=== PATIENT | female | born 1930 | race Caucasian/White ===

== ENCOUNTER 2017-12-26 05:06 | Emergency (ER) | payer BC, MEDICARE ==
[2017-12-26] MEDS ORDERED: DIPH,PERTUS(ACELL)TETVAC-LF 0.5 ML VIAL IM ONE (05:32)
[2017-12-26] MEDS ORDERED: CEPHALEXIN 500 MG CAP PO STA (05:32)
--- NOTE | 2017-12-26 05:35 | ED ---
Fall HPI - General Chief Complaint: Fall Stated Complaint: fall Time Seen by Provider: 12/26/17 05:23 Source: patient Mode of arrival: ambulatory - History of Present Illness Initial Comments: This patient is an 87-year-old woman who states that she had rolled then fall out of bed. She struck her nose on the floor when she fell. She is having bleeding from the nose. She denies other injuries. Complaint: fall -: minutes(s) Fall From: out of bed When Fall Occurred: [address] Fall Occurred: home Loss of Consciousness: none Prolonged Down Time?: no Location: face Severity: mild Quality: dull Associated Symptoms: denies - Related Data Previous Rx's Medication Instructions Recorded Cephalexin [Keflex] 500 mg PO Q6HR #20 cap 12/26/17 Allergies Allergy/AdvReac Type Severity Reaction Status Date / Time Sulfa (Sulfonamide Allergy Unknown Verified 12/26/17 05:14 Antibiotics) Childhood Review of Systems ROS Statement: Those systems with pertinent positive or pertinent negative responses have been documented in the HPI. ROS Other: All systems not noted in ROS Statement are negative. Constitutional: Denies: fever, weakness Eyes: Denies: eye pain, vision change ENT: Reports: epistaxis Respiratory: Denies: cough, dyspnea Cardiovascular: Denies: chest pain, palpitations, syncope Gastrointestinal: Denies: abdominal pain, nausea, vomiting Musculoskeletal: Denies: back pain, arthralgia Skin: Denies: rash Neurological: Denies: headache, weakness, numbness Hematological/Lymphatic: Denies: easy bleeding Past Medical History History of Any Multi-Drug Resistant Organisms: None Reported Past Surgical History: Appendectomy, Hysterectomy, Orthopedic Surgery, Tonsillectomy Past Psychological History: No Psychological Hx Reported Smoking Status: Former smoker Past Alcohol Use History: Occasional Past Drug Use History: None Reported General Exam Limitations: no limitations General appearance: alert, in no apparent distress Eye exam: Present: normal appearance. Absent: scleral icterus, conjunctival injection ENT exam: Present: normal oropharynx, other (Patient does have swelling to the nose. Dried blood in the naris. No septal hematoma.) Neck exam: Present: full ROM. Absent: tenderness Respiratory exam: Present: normal lung sounds bilaterally. Absent: respiratory distress, wheezes, rales, rhonchi, stridor Cardiovascular Exam: Present: regular rate, normal rhythm, normal heart sounds. Absent: systolic murmur, diastolic murmur, rubs, gallop GI/Abdominal exam: Present: soft. Absent: tenderness Skin exam: Present: warm, dry, intact, normal color. Absent: rash Course Vital Signs 12/26/17 05:09 Temperature 98.2 F Pulse Rate 100 Respiratory 20 Rate Blood Pressure 201/96 O2 Sat by Pulse 97 Oximetry Disposition Clinical Impression: Fall, Nasal bone fracture, Hypertension Disposition: HOME SELF-CARE Condition: Good Instructions: Nasal Fracture (ED), Fall Prevention for Older Adults (ED), Hypertension (ED) Prescriptions: Cephalexin [Keflex] 500 mg PO Q6HR #20 cap Is patient prescribed a controlled substance at d/c from ED?: No Referrals: Oswaldo Arboleda MD [Primary Care Provider] - 1-2 days Wiliam Tavarez MD [STAFF PHYSICIAN] - 1-2 days
--- NOTE | 2017-12-26 06:00 | XR ---
EXAMINATION TYPE: XR nasal bone DATE OF EXAM: 12/26/2017 COMPARISON: NONE HISTORY: Injury and pain TECHNIQUE: 3 views FINDINGS: Nasal bone shows a possible hairline fracture of the anterior tip. The maxillary spine is i ntact. The remainder of exam is unremarkable. IMPRESSION: There is probably a hairline fracture of the anterior tip of the nasal bone
[2017-12-26] MEDS ORDERED: CEPHALEXIN 500MG STARTER PACK 4 CAP BTL PO STA (06:57)
[2017-12-26] MEDS ORDERED: ACET/COD 300 MG/30 MG STARTER PACK 6 TAB BTL PO STA (06:57)
[2017-12-26] MEDS ORDERED: cloNIDine HCL 0.2 MG TAB PO STA (07:00)
[2017-12-26 08:05] VITALS: BP 160/78; PULSE 88; RESP 18; TEMP 97.8
== END 2017-12-26 08:09 | disposition home or self-care (01) ==
LOC: EC 05:06
DX: S02.2XXA Fracture of nasal bones, initial encounter for closed fracture (principal); I10 Essential (primary) hypertension; Z23 Encounter for immunization; Z87.891 Personal history of nicotine dependence; Z88.2 Allergy status to sulfonamides; W06.XXXA Fall from bed, initial encounter; Y92.009 Unspecified place in unspecified non-institutional (private) residence as the place of occurrence of the external cause
CPT/HCPCS: 70160; 90471; 90715; 99283

== ENCOUNTER → 2020-07-10 | Outpatient (CLI) | payer MEDICARE, BC ==
--- NOTE | 2020-07-10 09:23 | P.CONS ---
History of Present Illness - Reason for Consult Consult date: 07/10/20 - Chief Complaint Lower back and bilateral leg pain - History of Present Illness This is an 89-year-old lady with history of chronic lower back pain with radiation to the lower extremities down to the mid calves with no paresthesia in the lower extremities. The pain wakes the patient up at night and she admits to losing a few pounds overweight due to loss of appetite. The pain increases with activities and improved by resting. She had an MRI on the lumbar spine which showed severe levoscoliosis and right L4 nerve root compression due to disc herniation and osteophyte complex there is also compression of the left L5 nerve root however her pain on the right side is more intense than the left side as she states. The patient denies any bowel or bladder dysfunction. She uses a brace for her back. She is not a surgical candidate. The patient is a poor historian due to hearing difficulty. Past Medical History Past Medical History: Asthma, Cancer, GERD/Reflux, Hearing Disorder / Deafness, Hyperlipidemia, Hypertension Additional Past Medical History / Comment(s): cancer lower eye lid removed, lower back pain radiating to legs and knees., uses cane., states Dr Howard ordered her a back brace., hearing aids. History of Any Multi-Drug Resistant Organisms: None Reported Past Surgical History: Appendectomy, Hysterectomy, Orthopedic Surgery, Tonsillectomy Additional Past Surgical History / Comment(s): partial knee (R) Past Anesthesia/Blood Transfusion Reactions: No Reported Reaction Past Psychological History: Depression Additional Psychological History / Comment(s): states some depression with covid. Smoking Status: Former smoker Past Alcohol Use History: Daily Additional Past Alcohol Use History / Comment(s): quit smoking 63 years ago. 1 glass with dinner, 2 glasses on the weekend Past Drug Use History: None Reported - Past Family History Mother Family Medical History: No Reported History Medications and Allergies Home Medications Medication Instructions Recorded Confirmed Type Acetaminophen [Tylenol Extra 1,000 mg PO DIRECTED PRN 07/04/20 07/04/20 History Strength] Atorvastatin [Lipitor] 20 mg PO HS 07/04/20 07/04/20 History Benazepril/Hydrochlorothiazide 1 each PO DAILY 07/04/20 07/04/20 History [Benazepril-Hctz 20-25 mg Tab] Fish Oil/Dha/Epa [Fish Oil 1,200 1 each PO DAILY 07/04/20 07/04/20 History mg Fish Oil] Ibuprofen [Motrin Ib] 200 mg PO DIRECTED PRN 07/04/20 07/04/20 History Metoprolol Succinate (ER) [Toprol 25 mg PO DAILY 07/04/20 07/04/20 History Xl] Multivitamin/Iron/Folic Acid 1 each PO DAILY 07/04/20 07/04/20 History [Centrum Adults Tablet] Omeprazole 20 mg PO DAILY 07/04/20 07/04/20 History Potassium Chloride 10 meq PO DAILY 07/04/20 07/04/20 History Ubidecarenone [Co Q-10] 100 mg PO DAILY 07/04/20 07/04/20 History Allergies Allergy/AdvReac Type Severity Reaction Status Date / Time Sulfa (Sulfonamide Allergy Unknown Verified 07/04/20 14:16 Antibiotics) Childhood levofloxacin [From Levaquin] AdvReac Unknown Swelling Verified 07/04/20 14:18 of ankles Physical Exam - Constitutional General appearance: average body habitus - EENT Eyes: PERRLA ENT: hard of hearing - Neurologic Neuro exam of the lower extremities showed mild decrease in the muscle strength to 4 out of 5 for the major muscle groups. Decreased but symmetrical knee reflexes and absent ankle reflex bilaterally. Mild tenderness in the lumbar paravertebral musculature bilaterally. Straight leg raising test is negative bilaterally. - Psychiatric Psychiatric: A&O x's 3, appropriate affect, intact judgment & insight Assessment and Plan Plan: This is an 89-year-old lady with history of chronic lower back pain with radiation to the lower extremities without paresthesia. The patient has severe scoliosis by the MRI and compression of the right L4 nerve root on the left L5 nerve root. She would benefit from getting lumbar epidural steroid injection at the L4 5 level in the right paramedian approach. The procedure was explained to the patient in the presence of her and she was agreeable to it. I thank Dr. Salinas for the referral
[2020-07-10 09:28] VITALS: BP 196/75; PULSE 91; RESP 18; TEMP 97.6
== END ==
LOC: PNWHC3 08:51
PROVIDERS: ATTEND Anesthesiology
DX: G89.29 Other chronic pain (principal); M41.9 Scoliosis, unspecified; J45.909 Unspecified asthma, uncomplicated; E78.5 Hyperlipidemia, unspecified; K21.9 Gastro-esophageal reflux disease without esophagitis; I10 Essential (primary) hypertension; H91.90 Unspecified hearing loss, unspecified ear; F32.9 Major depressive disorder, single episode, unspecified; Z87.891 Personal history of nicotine dependence; Z79.899 Other long term (current) drug therapy
CPT/HCPCS: 99211

== ENCOUNTER 2020-08-08 09:23 | Day surgery (SDC) | payer MEDICARE, BC ==
[2020-08-04 13:04] VITALS: BMI 21.8
[~2020-08-08 09:23] MED LIST: LACTATED RINGERS 1,000 ML IV SCH
[2020-08-08 09:42] VITALS: RESP 16; TEMP 97.9
[2020-08-08] MEDS ORDERED: methylPREDNISolone ACETATE 40 MG/ML 1 ML VIAL ONE (10:04)
[2020-08-08] MEDS ORDERED: IOPAMIDOL M200 10 ML VIAL ONE (10:04)
[2020-08-08 10:35] VITALS: BP 166/87; PULSE 67
--- NOTE | 2020-08-08 10:38 | P.PCN ---
Date of Procedure: 08/08/20 Description of Procedure: PREOPERATIVE DIAGNOSIS: lumbar radiculopathy POSTOPERATIVE DIAGNOSIS: Lumbar radiculopathy PROCEDURE 1. Lumbar epidural steroid injection under fluoroscopic guidance at the L4-L5 level. 2. Lumbar epidurogram. Imaging: Fluoroscopy was used, images where saved to the medical record ANESTHESIA: Local with 1% lidocaine 5 ml EBL: Minimal PROCEDURE INDICATION: The patient with low back pain and radiculitis symptoms unresponsive to conservative treatment. Fluoroscopy was used to optimize visualization of the needle placement and to maximize safety. PROCEDURE DESCRIPTION / TECHNIQUE: The patient was seen and identified in the preoperative area. Risks, benefits, complications including but not limited to infections ,bleeding ,allergic reaction to the medications, nerve damage and incomplete pain relief , as well as alternatives to the procedure were discussed with the patient. The patient agreed to proceed with the procedure and signed the consent. IV was started, and vital signs were stable. Patient was taken to the OR and time out was completed. The patient was placed in the prone position on procedure table and a pillow was placed under the abdomen to reduce lumbar lordosis. The lumbosacral area was prepped and draped in the usual sterile fashion. Vitals were closely monitored during the procedure. Using anterior-posterior fluoroscopy, the L4-L5 interlaminar space was identified and the skin over this site was marked and then infiltrated with 1% lidocaine subcutaneously. Subsequently, a 20-gauge Tuohy epidural needle was inserted and advanced toward the epidural space using the Loss of resistance technique and guided by AP and lateral fluoroscopy. The correct needle position in the epidural space was verified with the injection of 1 mL of Omnipaque 180 contrast to observe an acceptable epidurogram, after negative aspiration for blood and CSF and in the absence of paresthesias. Again after negative aspiration, a 3 ml mixture containing 40mg of depomedrol and 2 ml of preservative free Normal Saline was injected and a washout of epidurogram was seen. Needle was withdrawn intact, skin was cleansed, and bandages were applied. COMPLICATIONS: None DISPOSITION / PLANS: The patient was placed in a supine position and transferred to the recovery area in a stable condition for observation. There was no evidence of lower extremity motor or sensory deficit after the procedure. Patient was discharged from the recovery room after meeting discharge criteria. Home discharge instructions were given to the patient by the staff. The patient was reexamined prior to discharge. The patient will follow up as directed.
--- NOTE | 2020-08-08 10:41 | FL ---
Fluoroscopy History: Lumbar Epid Inj 9sec fluoro time,2 images scanned
== END 2020-08-08 10:37 | disposition home or self-care (01) ==
LOC: ORPAIN 09:23
PROVIDERS: ATTEND Hospitalist
DX: M54.16 Radiculopathy, lumbar region (principal)
CPT/HCPCS: 62323; J1030; Q9966

== ENCOUNTER → 2020-09-04 | Outpatient (CLI) | payer MEDICARE, BC ==
[2020-09-04 10:22] VITALS: BP 169/86; PULSE 106; RESP 18; TEMP 97.7
--- NOTE | 2020-09-04 10:26 | P.PN ---
Subjective Progress Note Date: 09/04/20 This is an 89-year-old lady with history of bilateral knee pain and lower back pain. The patient received lumbar epidural steroid injection which improved her lower back pain however she still has pain which radiates from her knees down to the ankles as she states. She had injections in her knees by in February 2020 . Patient denies new-onset weakness, bowel/bladder incontinence, or any other signs or symptoms of cauda equina syndrome. There are no signs of acute intoxication, and no indications of medication diversion or overuse. In addition to above, 13-point review of systems is also negative for chest pain, shortness of breath, changes in vision, changes in hearing, new onset weakness, abdominal pain, diarrhea, extreme fatigue, malaise, fever, skin changes, homicidal or suicidal ideation, or bowel or bladder incontinence. 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 Explanation: Opioid and psychological risk scores were reviewed. Diagnoses, prognoses, and multiple treatment options including but not limited to physical therapy, interventional therapies, adjuvant medical therapies, narcotic medication therapies, and surgery were discussed with the patient and all questions were answered to the patient's satisfaction. 2. Opioid agreement: Signed with the patient and the patient is warned not to use opioids while driving or before driving and not to combine opioids with benzodiazepines or alcohol. 3. Counseling: The patient was counseled extensively on SMOKING CESSATION, BODY MASS INDEX, EXERCISE. Specifically, the patient was instructed regarding the importance of smoking cessation, obesity, and exercise in the context of both chronic pain and overall health. 4. Procedures: The patient would like to hold off on the second injection of lumbar epidural for now. 5. Consultations: Refer to orthopedic services for bilateral knee osteo arthritis and possible injection in the knee joints 6. Investigations: None 7. Medications: None prescribed 8. Disposition: Return to clinic as needed with any exacerbation of her lower back pain 9. Maps were reviewed and were appropriate. Objective - Vital Signs Vital signs: Vital Signs Temp 97.7 F 09/04/20 10:18 Pulse 106 H 09/04/20 10:18 Resp 18 09/04/20 10:18 BP 169/86 09/04/20 10:18 Pulse Ox 99 09/04/20 10:18 Intake & Output 09/03/20 09/04/20 09/04/20 18:59 06:59 18:59 Weight 48.534 kg
== END ==
LOC: PNWHC3 10:01
PROVIDERS: ATTEND Anesthesiology
DX: M47.816 Spondylosis without myelopathy or radiculopathy, lumbar region (principal); M48.061 Spinal stenosis, lumbar region without neurogenic claudication; M41.9 Scoliosis, unspecified; M17.0 Bilateral primary osteoarthritis of knee; Z88.2 Allergy status to sulfonamides; Z91.048 Other nonmedicinal substance allergy status; Z88.1 Allergy status to other antibiotic agents; Z87.891 Personal history of nicotine dependence
CPT/HCPCS: 99211